=== PATIENT | female | born 1995 | race African-American/Black ===

== ENCOUNTER 2016-10-13 09:54 | Emergency (ER) | payer SELFPAY ==
[2016-10-13 09:56] VITALS: BP 129/86; PULSE 74; RESP 15; TEMP 98.6; O2SAT 99
--- NOTE | 2016-10-13 10:31 | PD ---
HPI . Sore throat for a week Chief Complaint: ENT Complaint Time Seen by Provider: 10:31 Travel History International Travel<30 days: No Contact w/Intl Traveler<30days: No Traveled to known affect area: No History of Present Illness HPI 20-year-old female here with complaints of sore throat for 1 week. Patient denies any difficulty swallowing or shortness of breath. She denies any fever or chills. No other symptoms. PFSH Past Medical History ?: Not Social History Tobacco Use: No Review of Systems General / Constitutional: No: Fever Eyes: No: Visual changes HENT: Positive: Sore Throat, No: Headaches Cardiovascular: No: Chest Pain or Discomfort Respiratory: No: Shortness of Breath Gastrointestinal: No: Abdominal Pain Genitourinary: No: Dysuria Musculoskeletal: No: Pain Skin: No Rash Neurologic: No: Weakness Psychiatric: No: Depression Endocrine: No: Polydipsia Hematologic/Lymphatic: No: Easy Bruising Physical Exam Narrative GENERAL: AAO x 3, no acute distress, Well-nourished, well-developed patient. SKIN: Warm and dry. No visible rashes or bruising. HEAD: Normocephalic and atraumatic. EYES: No scleral icterus. No injection or drainage. ENT: No nasal drainage noted. Mucous membranes pink. Airway patent. No oropharynx abnormality. TMs normal bilaterally NECK: Supple, trachea midline. No JVD. No lymphadenopathy CARDIOVASCULAR: Regular rate and rhythm without murmurs, gallops, or rubs. RESPIRATORY: Breath sounds equal bilaterally. No accessory muscle use. No rhonchi or rales. GASTROINTESTINAL: Visual inspection normal EXTREMITIES: No cyanosis or edema. BACK: No obvious deformity NEURO: Grossly intact PSYCH: AAO x 3, normal affect. Data Data Last Documented VS Vital Signs Date Time Temp Pulse Resp B/P (MAP) Pulse Ox O2 Delivery O2 Flow Rate FiO2 10/13/16 09:56 98.6 74 15 129/86 (100) 99 MDM Medical Decision Making Medical Screen Exam Complete: Yes Emergency Medical Condition: No Medical Record Reviewed: Yes Differential Diagnosis Acute pharyngitis, less likely peritonsillar abscess, less likely influenza Narrative Course A medical screening exam was performed: At the time of evaluation the presenting medical condition was determined not to be of an emergent nature. The patient was given the option of receiving additional care, but declined. Patient was given options for additional community resources from which to obtain care. The Patient Has Been advised to seek medical attention for their presenting complaint. The patient has been advised to return to the ER at any time if an emergent condition develops. I explained to patient that this is more than likely viral in nature. It also could be some allergic component to her symptoms. Advised hot tea and honey. Lozenges. Ibuprofen for pain. Follow-up with primary care provider. Diagnosis Primary Impression: Encounter for medical screening examination Condition: Stable Betty Lozoya Oct 13, 2016 10:31
== END 2016-10-13 10:51 | disposition left against medical advice (07) ==
LOC: NEPK 09:54
DX: J02.9 Acute pharyngitis, unspecified (principal)
CPT/HCPCS: 99281

== ENCOUNTER 2016-10-15 22:47 | Emergency (ER) | payer SELFPAY ==
[2016-10-15 22:49] VITALS: BP 144/94; PULSE 96; RESP 16; TEMP 99.9; O2SAT 98
[2016-10-16] MEDS ORDERED: AMOXICILLIN (TRIHYDRATE) 500 MG CAP PO ONE (00:15)
[2016-10-16] MEDS ORDERED: predniSONE 20 MG TAB PO ONE (00:15)
[2016-10-16] MEDS ORDERED: PRED-503 PO (00:18)
[2016-10-16] MEDS ORDERED: AMOX500T PO (00:18)
--- NOTE | 2016-10-16 00:24 | PD ---
HPI Chief Complaint: Cold / Flu Symptoms Time Seen by Provider: 00:07 Travel History International Travel<30 days: No Contact w/Intl Traveler<30days: No Traveled to known affect area: No History of Present Illness HPI 20-year-old black female presents emergency department accompanied he by a friend. The patient is complaining of sore throat and difficulty swallowing. She states that she's been sick now for the past week. She has had low-grade temperature at home of 100. Positive ear pain, sore throat, difficulty swallowing, congestion and general malaise. She denies any shortness of breath or wheezing. No nausea vomiting. No diarrhea or abdominal pain. PFSH Past Medical History Medical History: Denies Significant Hx Diminished Hearing: No ?: Not LMP: 10/08/16 Past Surgical History Surgical History: No Previous Surgery Social History Alcohol Use: No Tobacco Use: No Substance Use: No Allergies-Medications (Allergen,Severity, Reaction): Coded Allergies: No Known Allergies (Unverified , 10/13/16) Reported Meds & Prescriptions Reported Meds & Active Scripts Active Deltasone (Prednisone) 20 Mg Tab 20 Mg PO BID 3 Days Amoxicillin 500 Mg Tab 1,000 Mg PO BID 10 Days Review of Systems Except as stated in HPI: all other systems reviewed are Neg Physical Exam Narrative GENERAL: Well-developed, well-nourished in no acute distress. Nontoxic appearing. HEAD: Normocephalic, atraumatic. EYES: Pupils equal round and reactive. Extraocular motions intact. No scleral icterus. No injection or drainage. ENT: TMs clear without erythema. The external auditory canals clear. Nose: clear . Posterior pharynx is erythematous and moist. Positive large tonsillar edema with white exudate. Uvula midline. Airway patent. No signs of abscess. NECK: Trachea midline.Supple, tender enlarged cervical adenopathy moves head freely. No central bony tenderness or spasm. CARDIOVASCULAR: Regular rate and rhythm without murmurs, gallops, or rubs. RESPIRATORY: Clear to auscultation. Breath sounds equal bilaterally. No wheezes , rales, or rhonchi. GASTROINTESTINAL: Abdomen soft, non-tender, nondistended. No hepato-splenomegaly , or palpable masses. No guarding. EXTREMITIES: No clubbing, cyanosis, or edema. No joint tenderness, effusion, or edema noted. BACK: Nontender without deformity or crepitance. No flank tenderness. Data Data Last Documented VS Vital Signs Date Time Temp Pulse Resp B/P (MAP) Pulse Ox O2 Delivery O2 Flow Rate FiO2 10/15/16 22:49 99.9 96 16 144/94 (111) 98 Room Air Orders Orders Amoxicillin (Trimox) (10/16/16 00:15) Prednisone (Deltasone) (10/16/16 00:15) MDM Medical Decision Making Medical Screen Exam Complete: Yes Emergency Medical Condition: Yes Medical Record Reviewed: Yes Differential Diagnosis MDM: High Differential diagnoses: Strep throat, viral pharyngitis, mono, peritonsillar abscess, retropharyngeal abscess, Ronn's angina Narrative Course Patient has declined IM injections of antibiotics and steroids. She states that she would like to try oral. Patient's given 1 g of amoxicillin by mouth and 60 mg of prednisone by mouth. This acute exudative pharyngitis Diagnosis Primary Impression: acute exudative pharyngitis Patient Instructions: General Instructions Additional Instructions: Rest. Force fluids. Saltwater gargles. Tylenol and Advil. Chloraseptic [place] Cepastat lozenge. Amoxicillin and prednisone. Follow-up with a primary care doctor in one week. Return to the ER if any problems. Med/Other Pt SpecificInfo: Prescription(s) given Scripts Prednisone (Deltasone) 20 Mg Tab 20 MG PO BID for 3 Days, #60 TAB 0 Refills Prov: Danny Avendano MD 10/16/16 Amoxicillin (Amoxicillin) 500 Mg Tab 1000 MG PO BID for Infection for 10 Days, TAB 0 Refills Prov: Danny Avendano MD 10/16/16 Disposition: 01 DISCHARGE HOME Condition: Stable Noe Onofre Oct 16, 2016 00:24
== END 2016-10-16 00:44 | disposition home or self-care (01) ==
LOC: NEPD 22:47
DX: J02.9 Acute pharyngitis, unspecified (principal); R50.9 Fever, unspecified; H92.09 Otalgia, unspecified ear; R09.81 Nasal congestion; R53.81 Other malaise
CPT/HCPCS: 99284; J7512